=== PATIENT | male | born 2000 | race Two or more races ===

== ENCOUNTER 2025-03-25 16:05 | Emergency (ER) | payer SELFPAY ==
[2025-03-25 16:10] VITALS: BP 195/147; PULSE 97; RESP 16; TEMP 37.1; O2SAT 98; BMI 32.9
--- NOTE | 2025-03-25 16:10 | EDNOTE_ITS ---
ED General RME/HPI General Chief complaint: Medical Clearance Stated complaint: MEDICAL CLEARANCE Time Seen by Provider: 03/25/25 16:07 Arrival date/time: 03/25/25 16:05 CC: Medical clearance for hypertension HPI patient comes in handcuffed escorted by PD, patient is 25 years old takes no medications has no allergies denies street drugs. PD states the patient's blood pressure at in processing was 190/110. Patient denies headache shortness of breath difficulty breathing or chest pain. Related Data Allergies Allergy/AdvReac Type Severity Reaction Status Date / Time No Known Allergies Allergy Verified 03/25/25 16:14 Review of Systems Review of Systems Narrative Review of Systems: GEN: No fever, no chills, no weight loss EYES: No discharge, no visual changes, no pain HEENT: No ear pain, no congestion, no sore throat PULM: No shortness of breath, no cough, no congestion CV: No chest pain, no dyspnea on exertion, no palpitations GI: No nausea, no vomiting, no diarrhea, no pain, no constipation : No frequency, no urgency, no dysuria MUSC/SKEL: No joint pain, no back pain SKIN: No rash PSYCH: No hallucinations, no depression HEME/LYMPH: No easy bleeding or bruising tendencies NEURO: No weakness, no headache ED Exam Narrative Physical exam: [General: Appears not in any acute distress Head normocephalic HEENT: Within acceptable limits Neck is supple nontender Chest equal chest rise nontender to palpation Respiratory: Clear to auscultation no wheezes crackles or rubs CV: Rate rhythm is regular no murmurs rubs or clicks Abdomen is soft nontender no masses positive bowel sounds all 4 quadrants Back: No CVA tenderness no spinous process tenderness from cervical spine thoracic and lumbar spine Skin: Intact no petechiae rash induration ulceration or crepitus Extremities: Moving all extremity against resistance cap refill less than 2 seconds neurosensory intact Neuro: Awake alert oriented x3 Glascow coma 15 no focal deficits] Course Course Course Narrative: Blood pressure after tube 0.2 clonidine's and 20 of hydralazine dropped to 90 over palp, repeat when laying flat went to 140/70. Will ambulate the patient and if he tolerates it we will discharge him to police custody. At 1815, the patient is able to ambulate without complication we will discharge the patient home with a pressure of 140/70. Quality Measures none Orders Category Date Time Status cloNIDine HCL [Catapres] Med 03/25/25 16:09 Discontinued 0.2 mg PO X1 ONE cloNIDine HCL [Catapres] Med 03/25/25 16:59 Discontinued 0.2 mg PO X1 ONE hydrALAZINE HCL [Apresoline] Med 03/25/25 16:09 Discontinued 25 mg PO X1 ONE Vital Signs Vital signs: Vital Signs Temperature 98.7 F 03/25/25 16:10 Pulse Rate 97 03/25/25 16:10 Respiratory Rate 16 03/25/25 16:10 Blood Pressure 195/147 H 03/25/25 16:10 Pulse Oximetry (%) 98 03/25/25 16:10 Oxygen Delivery Method Room Air 03/25/25 16:10 Discharge Plan Plan Patient Disposition: Nursing Home/Court/Law Patient condition on transfer: Stable Prescriptions/Referrals Referrals: No Primary/Family,Physician [Primary Care Provider] - In 1 week Problem List Clinical Impression: Hypertension, Medical clearance for incarceration Patient/Caregiver Discharge Instructions Print Language: Bahamian CARLEEN/ANH Supervising Physician PA/ANH Supervising Physician: Kyler Lynn ENP [facility] Clinical Information Provided by: patient and law enforcement Medical Records reviewed [facility] Meds/Rx considered, not ordered None Labs/Rad/Tests considered, not ordered None Chronic Illness/Social Conditions which may negatively complicate care or outcome(s)-explain: None or not applicable EKG EKG not done Medication Administration(s) Medication Administration History Discontinued Medications Clonidine (Clonidine Hcl 0.1 Mg Tablet) 0.2 mg PO X1 ONE Stop: 03/25/25 16:10 Last Admin: 03/25/25 16:24 Dose: 0.2 mg Documented By: C Clonidine (Clonidine Hcl 0.1 Mg Tablet) 0.2 mg PO X1 ONE Stop: 03/25/25 17:00 Last Admin: 03/25/25 17:10 Dose: 0.2 mg Documented By: ER Hydralazine HCl (Hydralazine Hcl 25 Mg Tablet) 25 mg PO X1 ONE Stop: 03/25/25 16:10 Last Admin: 03/25/25 16:23 Dose: 25 mg Documented By: C
--- NOTE | 2025-03-25 16:17 | PC.NURSE ---
PT BROUGHT IN BY POLICE FOR ALF CLEARANCE DUE TO HIGH B/P
--- NOTE | 2025-03-25 16:19 | PC.NURSE ---
PHARMACY CALLED TO CONFIRM MEDICATIONS SO NURSE CAN PULL FROM [facility]
[2025-03-25 16:23] VITALS: BP 202/139; PULSE 100
[2025-03-25 16:24] VITALS: BP 202/139; PULSE 100
[2025-03-25 17:10] VITALS: BP 198/140; PULSE 100
[2025-03-25 18:13] VITALS: BP 142/93
== END 2025-03-25 18:33 ==
PROVIDERS: Emergency Provider Family Medicine
DX: Z02.89 Encounter for other administrative examinations (principal); I10 Essential (primary) hypertension
CPT/HCPCS: 99283; A9270